=== PATIENT | male | born 1980 | race Hispanic/Latino ===

== ENCOUNTER 2021-06-15 17:12 | Inpatient (IN) | payer MEDICAID ==
[~2021-06-15 17:12] MED LIST: hydrALAZINE 20 MG/1 ML INJ IV ONE
[2021-06-15] MEDS ORDERED: PANTOPRAZOLE 40 MG INJ IV ONE (17:30)
[2021-06-15] MEDS ORDERED: SODIUM CHLORIDE 0.9% 1000 ML 1,000 ML IV ONE (17:30)
[2021-06-15] MEDS ORDERED: ONDANSETRON 4 MG/2 ML INJ IV ONE (17:30)
[2021-06-15] MEDS ORDERED: fentaNYL 250 MCG/5 ML INJ IV ONE (17:31)
--- NOTE | 2021-06-15 17:34 | Emergency Department Report ---
ED Abdominal Pain HPI - General Chief Complaint: Abdominal Pain Stated Complaint: ABDOMINAL PAIN Time Seen by Provider: 06/15/21 17:30 Source: patient, EMS Mode of arrival: Stretcher Limitations: No Limitations - History of Present Illness Initial Comments: Patient is 40 years old male with history of pancreatitis and pancreatic pseudocyst. Patient brought to the emergency room via EMS from home for evaluation of epigastric abdominal pain that radiated to his back. Patient describes his pain as sharp. Patient stated that pain started 3 days ago. Pain associated with nausea and vomiting. Patient denied any fever or chills. No chest pain or shortness of breath. MD Complaint: abdominal pain -: days(s) (3) Location: epigastric Migration to: no migration Severity: moderate Severity scale (0 -10): 7 Quality: sharp Associated Symptoms: nausea, vomiting - Related Data Allergies Allergy/AdvReac Type Severity Reaction Status Date / Time morphine AdvReac Unknown Verified 06/15/21 17:18 ED Review of Systems ROS: Stated complaint: ABDOMINAL PAIN Other details as noted in HPI Comment: All other systems reviewed and negative Constitutional: denies: chills, fever Respiratory: denies: cough, shortness of breath, SOB with exertion Cardiovascular: denies: chest pain, palpitations Gastrointestinal: abdominal pain, nausea, vomiting. denies: diarrhea, constipation, hematemesis, melena, hematochezia Musculoskeletal: denies: back pain Neurological: denies: headache, weakness, numbness, paresthesias, confusion, abnormal gait ED Physical Exam - General Limitations: No Limitations General appearance: alert, in no apparent distress - Head Head exam: Present: atraumatic, normocephalic, normal inspection - Eye Eye exam: Present: normal appearance, PERRL - ENT ENT exam: Present: normal exam, normal orophraynx, mucous membranes dry - Neck Neck exam: Present: normal inspection, full ROM. Absent: tenderness, meningismus - Respiratory Respiratory exam: Present: normal lung sounds bilaterally - Cardiovascular Cardiovascular Exam: Present: regular rate, normal rhythm, normal heart sounds - GI/Abdominal GI/Abdominal exam: Present: soft, normal bowel sounds. Absent: distended, tenderness, guarding, rebound, rigid, organomegaly, mass, bruit, pulsatile mass, hernia - Extremities Exam Extremities exam: Present: normal inspection, full ROM, normal capillary refill. Absent: tenderness - Back Exam Back exam: Present: normal inspection, full ROM. Absent: CVA tenderness (R), CVA tenderness (L) - Neurological Exam Neurological exam: Present: alert, oriented X3, CN II-XII intact, normal gait, reflexes normal. Absent: motor sensory deficit - Psychiatric Psychiatric exam: Present: normal mood - Skin Skin exam: Present: warm, intact, normal color ED Course Vital Signs 06/15/21 06/15/21 06/15/21 17:16 19:13 19:16 Temperature 98 F 98.5 F 98.5 F Pulse Rate 90 74 74 Respiratory 18 12 16 Rate Blood Pressure 178/111 Blood Pressure 170/110 178/111 [Left] O2 Sat by Pulse 96 100 100 Oximetry 06/15/21 06/15/21 19:41 20:07 Temperature 98.6 F 98.5 F Pulse Rate 71 74 Respiratory 20 18 Rate Blood Pressure Blood Pressure 168/102 196/133 [Left] O2 Sat by Pulse 100 100 Oximetry ED Medical Decision Making - Lab Data Result diagrams: 06/15/21 17:35 06/15/21 17:35 - Radiology Data Radiology results: report reviewed - Medical Decision Making Patient is 40 years old male with history of pancreatitis and pancreatic pseudocyst. Patient brought to the emergency room via EMS from home for evaluation of epigastric abdominal pain that radiated to his back. Patient describes his pain as sharp. Patient stated that pain started 3 days ago. Pain associated with nausea and vomiting. Patient denied any fever or chills. No chest pain or shortness of breath. Patient received fentanyl 50 MCG x2 and normal saline. Patient labs reviewed and showed leukocytosis of 13,000. Lipase is 120. CT abdomen and pelvis showed pancreatic dilatation and pancreatic head mass. Patient stated that he had this finding before and they want to do surgery on him but he refused and he does not want surgery. Patient also found to have elevated blood pressure not improved with pain medication. Patient received hydralazine 20 mg IV. I discussed the patient with Dr. George, he agreed to admit the patient to medical service for further management. Critical care attestation.: If time is entered above; I have spent that time in minutes in the direct care of this critically ill patient, excluding procedure time. ED Disposition Clinical Impression: Acute abdominal pain, Acute pancreatitis, Malignant hypertension Disposition: ADMITTED INPATIENT Is pt being admited?: Yes Condition: Stable Instructions: Hypertension (ED)
[2021-06-15 17:50] LABS: Basophils # (Auto) 0.1 K/mm3 (0.0-0.1); Basophils % (Auto) 0.4 % (0.0-1.8); Eosinophils # (Auto) 0.1 K/mm3 (0.0-0.4); Eosinophils % (Auto) 0.4 % (0.0-4.3); Hematocrit 46.7 % (35.5-45.6); Hemoglobin 15.4 gm/dl (11.8-15.2); Lymphocytes # (Auto) 1.5 K/mm3 (1.2-5.4); Lymphocytes % (Auto) 10.8 % (13.4-35.0); Mean Corpuscular HGB Conc 33 % (32-34); Mean Corpuscular Volume 88 fl (84-94); Monocytes # (Auto) 0.8 K/mm3 (0.0-0.8); Monocytes % (Auto) 5.5 % (0.0-7.3); Platelet Count 220 K/mm3 (140-440); Red Blood Count 5.34 M/mm3 (3.65-5.03); Red Cell Distribution Width 14.2 % (13.2-15.2)
[2021-06-15] MEDS ORDERED: fentaNYL 100 MCG/2 ML INJ IV ONE (17:59)
[2021-06-15] MEDS ORDERED: diphenhydrAMINE 50 MG/ML VIAL ONE ×3 (18:07→19:49)
[2021-06-15 18:12] LABS: Alanine Aminotransferase 16 units/L (7-56); Albumin 4.7 g/dL (3.9-5); BUN/Creatinine Ratio 18; Blood Urea Nitrogen 16 mg/dL (9-20); Calcium 8.9 mg/dL (8.4-10.2); Hemolysis Index 20
[2021-06-15 18:15] LABS: Bilirubin,Direct < 0.2 mg/dL (0-0.2)
[2021-06-15 18:44] LABS: Amorphous Crystals,Urine Few; Bilirubin,Urine NEG (Negative); Blood,Urine NEG (Negative); Color,Urine Yellow (Yellow); Mucus,Urine FEW /HPF; Protein,Urine <15 mg/dL mg/dL (Negative); Urobilinogen,Urine < 2.0 mg/dL (<2.0)
--- NOTE | 2021-06-15 19:57 | Cat Scan Report ---
. CT ABDOMEN AND PELVIS WITH CONTRAST HISTORY: abdominal pain. COMPARISON: None. TECHNIQUE: CT images of the abdomen and pelvis were obtained following administration of intravenous contrast. All CT scans at this location are performed using CT dose reduction for ALARA by means of automated exposure control. CONTRAST: 100 ml of intravenous contrast administered. FINDINGS: Lungs/bones: Lung bases are clear. There are mild degenerative changes in the spine with no acute os seous abnormality. Bilateral L4 pars defects present with grade 1 anterolisthesis of L4 on L5. Abdomen/pelvis: There is punctate cholelithiasis with no significant inflammatory change identified. The liver, spleen, adrenals, kidneys, and proximal GI tract appear unremarkable. There is irregular dilatation of the pancreatic duct in the tail and body with rounded fullness in th e pancreatic head region measuring at least 3 cm. This is the approximate area where the duct dilatat ion ceases. There is also mild body and tail atrophy. No gross pathologic regional adenopathy identif ied. Urinary bladder and prostate appear unremarkable. No pelvic free fluid or acute colonic abnormality. IMPRESSION: 1. Abnormal appearance of the pancreas as outlined above. Findings are worrisome for an underlying pa ncreatic head mass with associated ductal dilatation and pancreatic body/tail atrophy. No biliary polo mendy dilatation. 1. Punctate cholelithiasis. Signer Name: Santos Raines MD Signed: 06/15/2021 7:53 PM Workstation Name: [id number]
[2021-06-15] MEDS ORDERED: hydrALAZINE 20 MG/1 ML INJ IV ONE (20:08)
--- NOTE | 2021-06-15 21:11 | History and Physical Report ---
History of Present Illness Date of examination: 06/15/21 Date of admission: 06/15/2021 Chief complaint: Severe epigastric pain for 3 days History of present illness: 40-year-old male with history of recurrent pancreatitis and pancreatic pseudocyst comes in for severe epigastric pain radiating to the back for 3 days. Pain is intermittent in nature. Sharp in nature. Pain is about 8 on a scale of 1-10. No fever or chills. Patient had a surgical procedure where pseudocyst was evacuated in the past. Patient has stopped alcohol since 3 years ago when he had the surgery. Patient still continues to smoke. Food is an exacerbating factor no food is a relieving factor. No fever or chills. No vomiting. Nausea present. Unable to take any food. Review of Systems ROS: Constitutional no weight loss or weight gain no fever or chills HEENT no sore throat no post nasal drip no diplopia Neck no neck stiffness no lymph gland enlargement Chest and lungs no shortness of breath cough or wheezing CVS no chest pain no diaphoresis no palpitations GI severe epigastric pain and nausea. Pain is about 8 on a scale of 1-10. 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 no syncope no seizures Skin no rash no itching Psychiatric no depression no homicidal or suicidal tendencies Hematologic no lymphedema or bruising Endocrine no polydipsia no polyuria no cold intolerance no heat intolerance Past History Past Medical History: hypertension, other (Recurrent pancreatitis) Past Surgical History: Other (Pseudocyst removal) Social history: lives with family, smoking (Smokes about a pack a day.), alcohol abuse (Alcohol dependence in the past still 3 years ago.), full code Family history: hypertension Medications and Allergies Allergies Allergy/AdvReac Type Severity Reaction Status Date / Time morphine AdvReac Unknown Verified 06/15/21 17:18 Exam - Constitutional Vitals: Temp Pulse Resp BP Pulse Ox 98.5 F 74 19 197/133 100 06/15/21 20:07 06/15/21 20:17 06/15/21 20:15 06/15/21 20:17 06/15/21 20:15 General appearance: Present: no acute distress, well-nourished - EENT Eyes: Present: PERRL ENT: hearing intact, clear oral mucosa - Neck Neck: Present: supple, normal ROM - Respiratory Respiratory effort: normal Respiratory: bilateral: CTA - Cardiovascular Heart rate: 78 Rhythm: regular Heart Sounds: Present: S1 & S2. Absent: rub, click - Extremities Extremities: pulses symmetrical, No edema Peripheral Pulses: within normal limits - Abdominal General gastrointestinal: Present: soft, non-tender, non-distended, normal bowel sounds Localized gastrointestinal: tender: diffuse, epigastric periumbilical, guarding: diffuse, epigastric periumbilical, rebound: diffuse, epigastric periumbilical Male genitourinary: Present: normal - Rectal Rectal Exam: deferred - Integumentary Integumentary: Present: clear, warm, dry - Musculoskeletal Musculoskeletal: gait normal, strength equal bilaterally - Psychiatric Psychiatric: appropriate mood/affect, intact judgment & insight - Neurologic Neurologic: CNII-XII intact, moves all extremities - Allied Health Allied health notes reviewed: nursing, case management HEART Score - HEART Score Risk factors: 1-2 risk factors Troponin: < normal limit - Critical Actions Critical Actions: 0-3 pts:0.9-1.7%risk of adverse cardiac event.Candidate for di scharrodney Results - Labs CBC & Chem 7: 06/15/21 17:35 06/15/21 17:35 Labs: Laboratory Last Values WBC 13.8 K/mm3 (4.5-11.0) H 06/15/21 17:35 RBC 5.34 M/mm3 (3.65-5.03) H 06/15/21 17:35 Hgb 15.4 gm/dl (11.8-15.2) H 06/15/21 17:35 Hct 46.7 % (35.5-45.6) H 06/15/21 17:35 MCV 88 fl (84-94) 06/15/21 17:35 MCH 29 pg (28-32) 06/15/21 17:35 MCHC 33 % (32-34) 06/15/21 17:35 RDW 14.2 % (13.2-15.2) 06/15/21 17:35 Plt Count 220 K/mm3 (140-440) 06/15/21 17:35 Lymph % (Auto) 10.8 % (13.4-35.0) L 06/15/21 17:35 [place] % (Auto) 5.5 % (0.0-7.3) 06/15/21 17:35 Eos % (Auto) 0.4 % (0.0-4.3) 06/15/21 17:35 Baso % (Auto) 0.4 % (0.0-1.8) 06/15/21 17:35 Lymph # (Auto) 1.5 K/mm3 (1.2-5.4) 06/15/21 17:35 [place] # (Auto) 0.8 K/mm3 (0.0-0.8) 06/15/21 17:35 Eos # (Auto) 0.1 K/mm3 (0.0-0.4) 06/15/21 17:35 Baso # (Auto) 0.1 K/mm3 (0.0-0.1) 06/15/21 17:35 Seg Neutrophils % 82.9 % (40.0-70.0) H 06/15/21 17:35 Seg Neutrophils # 11.5 K/mm3 (1.8-7.7) H 06/15/21 17:35 Sodium 138 mmol/L (137-145) 06/15/21 17:35 Potassium 4.8 mmol/L (3.6-5.0) 06/15/21 17:35 Chloride 99.5 mmol/L (98-107) 06/15/21 17:35 Carbon Dioxide 27 mmol/L (22-30) 06/15/21 17:35 Anion Gap 16 mmol/L 06/15/21 17:35 BUN 16 mg/dL (9-20) 06/15/21 17:35 Creatinine 0.9 mg/dL (0.8-1.3) 06/15/21 17:35 Estimated GFR > 60 ml/min 06/15/21 17:35 BUN/Creatinine Ratio 18 % 06/15/21 17:35 Glucose 127 mg/dL (75-100) H 06/15/21 17:35 Calcium 8.9 mg/dL (8.4-10.2) 06/15/21 17:35 Total Bilirubin 0.20 mg/dL (0.1-1.2) 06/15/21 17:35 Direct Bilirubin < 0.2 mg/dL (0-0.2) 06/15/21 17:35 Indirect Bilirubin 0.0 mg/dL 06/15/21 17:35 AST 17 units/L (5-40) 06/15/21 17:35 ALT 16 units/L (7-56) 06/15/21 17:35 Alkaline Phosphatase 107 units/L (35-129) 06/15/21 17:35 Total Protein 7.4 g/dL (6.3-8.2) 06/15/21 17:35 Albumin 4.7 g/dL (3.9-5) 06/15/21 17:35 Albumin/Globulin Ratio 1.7 % 06/15/21 17:35 Lipase 120 units/L (13-60) H 06/15/21 17:35 Urine Color Yellow (Yellow) 06/15/21 Unknown Urine Turbidity Hazy (Clear) 06/15/21 Unknown Urine pH 7.0 (5.0-7.0) 06/15/21 Unknown Ur Specific [place] 1.017 (1.003-1.030) 06/15/21 Unknown Urine Protein <15 mg/dl mg/dL (Negative) 06/15/21 Unknown Urine Glucose (UA) Neg mg/dL (Negative) 06/15/21 Unknown Urine Ketones Neg mg/dL (Negative) 06/15/21 Unknown Urine Blood Neg (Negative) 06/15/21 Unknown Urine Nitrite Neg (Negative) 06/15/21 Unknown Urine Bilirubin Neg (Negative) 06/15/21 Unknown Urine Urobilinogen < 2.0 mg/dL (<2.0) 06/15/21 Unknown Ur Leukocyte Esterase Neg (Negative) 06/15/21 Unknown Urine WBC (Auto) 3.0 /HPF (0.0-6.0) 06/15/21 Unknown Urine RBC (Auto) 1.0 /HPF (0.0-6.0) 06/15/21 Unknown Amorphous Crystals Few 06/15/21 Unknown Urine Mucus Few /HPF 06/15/21 Unknown - Imaging and Cardiology Abdominal x-ray: report reviewed Venous US: pending Imaging and Cardiology: CT abdomen/pelvis There is severe dilatation of the pancreatic duct in the tail and body with rounded fullness in the pancreatic head region measuring at least 3 cm. There is a approximate area where the duct dilatation seizures. There is also mild body and tail atrophy. No gross pathologic regional adenopathy identified. Final impression Abnormal appearance of the pancreas as outlined above. Findings are worrisome for an underlying pancreatic head mass with associated ductal dilatation and pancreatic body/tail atrophy. No biliary ductal dilatation. Punctate cholelithiasis. Assessment and Plan Advance Directives: Yes (Full code) VTE prophylaxis?: Chemical Plan of care discussed with patient/family: Yes - Patient Problems (1) Acute pancreatitis Status: Acute Qualifiers: Acute pancreatitis complication: unspecified Plan to address problem: We will keep the patient n.p.o. IV fluids for now Pain management with morphine/Dilaudid. Surgery consult if necessary. (2) Hypertensive emergency Status: Acute Plan to address problem: Patient started on Catapres patch and IV hydralazine Oral antihypertensives once he starts eating. Defer to primary team. (3) Nicotine dependence Status: Chronic Qualifiers: Nicotine product type: cigarettes Plan to address problem: Counseled about stopping smoking NicoDerm patch initiated Chantix to be prescribed at the time of discharge Patient understands the complications of smoking including peripheral arterial disease, coronary artery disease and cerebrovascular accidents 10 minutes (4) DVT prophylaxis Status: Acute Plan to address problem: On anticoagulation GI prophylaxis. (5) Advance care planning Status: Acute Plan to address problem: Disease education conducted, care plan discussed, diagnosis discussed, prognosis discussed. Patient acknowledges understanding and agrees with care plan. +30 minutes.
[2021-06-15] MEDS ORDERED: METOCLOPRAMIDE 10 MG/2 ML INJ IV PRN (21:24)
[2021-06-15] MEDS ORDERED: oxyCODONE /ACETAMINOPHEN 5-325MG TAB PO PRN (21:24)
[2021-06-15] MEDS ORDERED: ACETAMINOPHEN 325 MG TAB PO PRN (21:24)
[2021-06-15] MEDS ORDERED: ONDANSETRON 4 MG/2 ML INJ IV PRN (21:24)
[2021-06-15] MEDS ORDERED: hydrALAZINE 20 MG/1 ML INJ IV PRN (21:27)
[2021-06-15] MEDS ORDERED: fentaNYL 100 MCG/2 ML INJ IV PRN (21:29)
[2021-06-15] MEDS ORDERED: cloNIDine TTS 0.3 MG/24 HR PATCH TD SCH (22:00)
[2021-06-15] MEDS: HEPARIN 5,000 UNIT/1 ML VIAL SUB-Q SCH (22:57)
[2021-06-15] MEDS: FAMOTIDINE 20 MG/2 ML INJ IV SCH (22:57)
[2021-06-16] MEDS: NICOTINE 21 MG/24 HR PATCH TD SCH ×2 (01:55→11:30)
[2021-06-16] MEDS: HYDROmorphone 1 MG/1 ML INJ IV PRN ×5 (02:25→21:30)
[2021-06-16] MEDS: D5W/0.9% NACL 1,000 ML IV SCH ×2 (02:28→11:30)
[2021-06-16 07:12] LABS: Basophils % (Auto) 0.4 % (0.0-1.8); Eosinophils # (Auto) 0.1 K/mm3 (0.0-0.4); Eosinophils % (Auto) 1.1 % (0.0-4.3); Hematocrit 43.2 % (35.5-45.6); Hemoglobin 14.3 gm/dl (11.8-15.2); Lymphocytes # (Auto) 2.2 K/mm3 (1.2-5.4); Lymphocytes % (Auto) 25.6 % (13.4-35.0); Mean Corpuscular HGB Conc 33 % (32-34); Mean Corpuscular Volume 87 fl (84-94); Monocytes # (Auto) 0.6 K/mm3 (0.0-0.8); Monocytes % (Auto) 7.5 % (0.0-7.3); Platelet Count 200 K/mm3 (140-440); Red Blood Count 4.95 M/mm3 (3.65-5.03); Red Cell Distribution Width 14.4 % (13.2-15.2)
[2021-06-16 07:33] LABS: Alanine Aminotransferase 12 units/L (7-56); Albumin 3.9 g/dL (3.9-5); BUN/Creatinine Ratio 14; Blood Urea Nitrogen 11 mg/dL (9-20); Calcium 8.7 mg/dL (8.4-10.2); Hemolysis Index 8
--- NOTE | 2021-06-16 09:03 | Progress Note ---
Assessment and Plan Assessment and plan: History of present illness: 40-year-old male with history of recurrent pancreatitis and pancreatic pseudocyst comes in for severe epigastric pain radiating to the back for 3 days. Pain is intermittent in nature. Sharp in nature. Pain is about 8 on a scale of 1-10. No fever or chills. Patient had a surgical procedure where pseudocyst was evacuated in the past. Patient has stopped alcohol since 3 years ago when he had the surgery. Patient still continues to smoke. Food is an exacerbating factor no food is a relieving factor. No fever or chills. No vomiting. Nausea present. Unable to take any food. Hospital Course: 06/16:Continues to have abdominal pain. Rates at 7/10 and states that it is improved today. Denies having an appetite. Would try diet this evening if patient is able. Patient states he has a history of cyst of on pancreas which was drained. Also was evaluated by surgery at [facility]. I discussed with him that we do not have pancreatic surgical services at our facility so I recommended he follows up with his doctors at [facility] for further evaluation. Anticipate discharge in 24 hrs. Assessment and Plan: #Acute pancreatitis Status: Acute Qualifiers: Acute pancreatitis complication: unspecified Plan to address problem: - Suspect acute worsening of chronic pancreatic issues, has a history of alcoholism in the past ( States he quit 3 yrs ago), history of pancreatic cyst, and pancreatic head mass. - lipase 120 - CTAP: findings suspicious for pancreatic head mass. - Was seen at [facility] due to pancreatic head mass which he is aware of. At the time surgery was recommended but patient declined. patient describes pancreatic cyst which he states was drained by IR at [facility]. He continues to state that he would not like to have surgery due to risky nature of the procedure that was described to him by his surgeons. Advised patient that he should seek his [facility] doctors upon discharge for further evaluation of pancreatic head mass. I stated that we do not have pancreatic surgical services at [facility] and that he would most likely benefit from further work up and eval of mass and potentially curative treatment. - records from [facility] requested - We will keep the patient n.p.o. - IV fluids for now - Pain management with morphine/Dilaudid. - Surgery consult if necessary. #Hypertensive emergency (controlled) Status: Acute Plan to address problem: Patient started on Catapres patch and IV hydralazine Could also be driven by pain on presentation Continue close monitoring. Oral antihypertensives once he starts eating. Defer to primary team. #Nicotine dependence Status: Chronic Qualifiers: Nicotine product type: cigarettes Plan to address problem: Counseled about stopping smoking NicoDerm patch initiated Chantix to be prescribed at the time of discharge Patient understands the complications of smoking including peripheral arterial d isease, coronary artery disease and cerebrovascular accidents 10 minutes #DVT prophylaxis Status: Acute Plan to address problem: On anticoagulation GI prophylaxis. #Advance care planning Status: Acute Plan to address problem: Disease education conducted, care plan discussed, diagnosis discussed, prognosis discussed. Patient acknowledges understanding and agrees with care plan. +30 minutes. History Interval history: Patient continues to have some abdominal pain. Hospitalist Physical - Physical exam Narrative exam: Physical Exam: VITAL SIGNS: Reviewed. GENERAL: The patient appears normally developed, Vital signs as documented. HEAD: No signs of head trauma. EYES: Pupils are equal. Extraocular motions intact. EARS: Hearing grossly intact. MOUTH: Oropharynx is normal. NECK: No adenopathy, no JVD. CHEST: Chest with clear breath sounds bilaterally. No wheezes, rales, or rhonchi. CARDIAC: Regular rate and rhythm. S1 and S2, without murmurs, gallops, or rubs. VASCULAR: No Edema. Peripheral pulses normal and equal in all extremities. ABDOMEN: Soft, non tender and non distended. No rebound or guarding, and no masses palpated. Bowel Sounds normal. MUSCULOSKELETAL: Good range of motion of all major joints. Extremities without clubbing, cyanosis or edema. NEUROLOGIC EXAM: Alert and oriented x 4. no focal sensory or strength deficits. PSYCHIATRIC: Mood normal. SKIN: detail exam as documented in skin assessment - Constitutional Vitals: Temp Pulse Resp BP Pulse Ox 98.3 F 87 16 126/80 94 06/16/21 02:44 06/16/21 02:44 06/16/21 02:44 06/16/21 02:44 06/16/21 02:44 General appearance: Present: no acute distress, well-nourished HEART Score - HEART Score Risk factors: 1-2 risk factors Troponin: < normal limit - Critical Actions Critical Actions: 0-3 pts:0.9-1.7%risk of adverse cardiac event.Candidate for d ischarge Results - Labs CBC & Chem 7: 06/16/21 06:45 06/16/21 06:45 Labs: Laboratory Last Values WBC 8.4 K/mm3 (4.5-11.0) 06/16/21 06:45 RBC 4.95 M/mm3 (3.65-5.03) 06/16/21 06:45 Hgb 14.3 gm/dl (11.8-15.2) 06/16/21 06:45 Hct 43.2 % (35.5-45.6) 06/16/21 06:45 MCV 87 fl (84-94) 06/16/21 06:45 MCH 29 pg (28-32) 06/16/21 06:45 MCHC 33 % (32-34) 06/16/21 06:45 RDW 14.4 % (13.2-15.2) 06/16/21 06:45 Plt Count 200 K/mm3 (140-440) 06/16/21 06:45 Lymph % (Auto) 25.6 % (13.4-35.0) 06/16/21 06:45 [place] % (Auto) 7.5 % (0.0-7.3) H 06/16/21 06:45 Eos % (Auto) 1.1 % (0.0-4.3) 06/16/21 06:45 Baso % (Auto) 0.4 % (0.0-1.8) 06/16/21 06:45 Lymph # (Auto) 2.2 K/mm3 (1.2-5.4) 06/16/21 06:45 [place] # (Auto) 0.6 K/mm3 (0.0-0.8) 06/16/21 06:45 Eos # (Auto) 0.1 K/mm3 (0.0-0.4) 06/16/21 06:45 Baso # (Auto) 0.0 K/mm3 (0.0-0.1) 06/16/21 06:45 Seg Neutrophils % 65.4 % (40.0-70.0) 06/16/21 06:45 Seg Neutrophils # 5.5 K/mm3 (1.8-7.7) 06/16/21 06:45 Sodium 140 mmol/L (137-145) 06/16/21 06:45 Potassium 4.0 mmol/L (3.6-5.0) 06/16/21 06:45 Chloride 104.1 mmol/L (98-107) 06/16/21 06:45 Carbon Dioxide 25 mmol/L (22-30) 06/16/21 06:45 Anion Gap 15 mmol/L 06/16/21 06:45 BUN 11 mg/dL (9-20) 06/16/21 06:45 Creatinine 0.8 mg/dL (0.8-1.3) 06/16/21 06:45 Estimated GFR > 60 ml/min 06/16/21 06:45 BUN/Creatinine Ratio 14 % 06/16/21 06:45 Glucose 133 mg/dL (75-100) H 06/16/21 06:45 Calcium 8.7 mg/dL (8.4-10.2) 06/16/21 06:45 Total Bilirubin 0.30 mg/dL (0.1-1.2) 06/16/21 06:45 Direct Bilirubin < 0.2 mg/dL (0-0.2) 06/15/21 17:35 Indirect Bilirubin 0.0 mg/dL 06/15/21 17:35 AST 13 units/L (5-40) 06/16/21 06:45 ALT 12 units/L (7-56) 06/16/21 06:45 Alkaline Phosphatase 90 units/L (35-129) 06/16/21 06:45 Total Protein 6.4 g/dL (6.3-8.2) 06/16/21 06:45 Albumin 3.9 g/dL (3.9-5) 06/16/21 06:45 Albumin/Globulin Ratio 1.6 % 06/16/21 06:45 Lipase 120 units/L (13-60) H 06/15/21 17:35 Urine Color Yellow (Yellow) 06/15/21 Unknown Urine Turbidity Hazy (Clear) 06/15/21 Unknown Urine pH 7.0 (5.0-7.0) 06/15/21 Unknown Ur Specific [place] 1.017 (1.003-1.030) 06/15/21 Unknown Urine Protein <15 mg/dl mg/dL (Negative) 06/15/21 Unknown Urine Glucose (UA) Neg mg/dL (Negative) 06/15/21 Unknown Urine Ketones Neg mg/dL (Negative) 06/15/21 Unknown Urine Blood Neg (Negative) 06/15/21 Unknown Urine Nitrite Neg (Negative) 06/15/21 Unknown Urine Bilirubin Neg (Negative) 06/15/21 Unknown Urine Urobilinogen < 2.0 mg/dL (<2.0) 06/15/21 Unknown Ur Leukocyte Esterase Neg (Negative) 06/15/21 Unknown Urine WBC (Auto) 3.0 /HPF (0.0-6.0) 06/15/21 Unknown Urine RBC (Auto) 1.0 /HPF (0.0-6.0) 06/15/21 Unknown Amorphous Crystals Few 06/15/21 Unknown Urine Mucus Few /HPF 06/15/21 Unknown [place]/IV: Voiding Method Toilet Active Medications - Current Medications Current Medications: Generic Name Dose Route Start Last Admin Trade Name Freq PRN Reason Stop Dose Admin Acetaminophen 650 mg 06/15/21 21:24 Acetaminophen 325 Mg Tab PO Q4H PRN Pain MILD(1-3)/Fever >100.5/OWUSU Clonidine HCl 0.3 mg 06/15/21 22:00 06/15/21 23:02 Clonidine Tts 0.3 Mg/24 Hr Patch TD 0.3 mg Moore KIMO Administration Famotidine 20 mg 06/15/21 22:00 06/15/21 22:57 Famotidine 20 Mg/2 Ml Inj IV 20 mg BID KIMO Administration Heparin Sodium (Porcine) 5,000 unit 06/15/21 22:00 06/15/21 22:57 Heparin 5,000 Unit/1 Ml Vial SUB-Q 5,000 unit Q12HR KIMO Administration Hydralazine HCl 10 mg 06/15/21 21:27 Hydralazine 20 Mg/1 Ml Inj IV Q3H PRN Blood Pressure Hydromorphone HCl 1 mg 06/16/21 02:14 06/16/21 08:30 Hydromorphone 1 Mg/1 Ml Inj IV 1 mg Q4H PRN Administration Pain , Severe (7-10) Dextrose/Sodium Chloride 1,000 mls @ 125 mls/hr 06/15/21 22:00 06/16/21 02:28 D5ns IV 125 mls/hr DIRECT KIMO Administration Metoclopramide HCl 10 mg 06/15/21 21:24 Metoclopramide 10 Mg/2 Ml Inj IV Q6H PRN Nausea And Vomiting Nicotine 21 mg 06/15/21 22:00 06/16/21 01:55 Nicotine 21 Mg/24 Hr Patch TD 21 mg QDAY KIMO Administration Ondansetron HCl 4 mg 06/15/21 21:24 Ondansetron 4 Mg/2 Ml Inj IV Q3H PRN Nausea And Vomiting Oxycodone/Acetaminophen 1 tab 06/15/21 21:24 06/15/21 22:56 Oxycodone /Acetaminophen 5-325mg Tab PO 1 tab Q6H PRN Administration Pain, Moderate (4-6) Sodium Chloride 10 ml 06/15/21 22:00 06/16/21 08:31 Sodium Chloride 0.9% 10 Ml Flush Syringe IV 10 ml BID KIMO Administration Sodium Chloride 10 ml 06/15/21 21:24 Sodium Chloride 0.9% 10 Ml Flush Syringe IV PRN PRN LINE FLUSH
[2021-06-16] MEDS: HEPARIN 5,000 UNIT/1 ML VIAL SUB-Q SCH ×2 (11:30→21:29)
[2021-06-16] MEDS: FAMOTIDINE 20 MG/2 ML INJ IV SCH ×2 (11:31→21:30)
[2021-06-17] MEDS: HYDROmorphone 1 MG/1 ML INJ IV PRN ×4 (01:30→16:54)
[2021-06-17] MEDS ORDERED: HYDROmorphone 1 MG/1 ML INJ IV ONE (04:59)
[2021-06-17] MEDS ORDERED: hydrALAZINE 20 MG/1 ML INJ IV PRN (05:02)
--- NOTE | 2021-06-17 09:39 | Progress Note ---
Assessment and Plan Assessment and plan: 40-year-old male with history of recurrent pancreatitis and pancreatic pseudocyst comes in for severe epigastric pain radiating to the back for 3 days. Pain is intermittent in nature. Sharp in nature. Pain is about 8 on a scale of 1-10. No fever or chills. Patient had a surgical procedure where pseudocyst was evacuated in the past. Patient has stopped alcohol since 3 years ago when he had the surgery. Acute pancreatitis - Suspect acute worsening of chronic pancreatic issues, has a history of alcoholism in the past (States he quit 3 yrs ago), history of pancreatic cyst, and pancreatic head mass. - CTAP: findings suspicious for pancreatic head mass. - Was seen at [facility] due to pancreatic head mass which he is aware of. At the time surgery was recommended but patient declined. patient describes pancreatic cyst which he states was drained by IR at [facility]. He continues to state that he would not like to have surgery due to risky nature of the procedure that was described to him by his surgeons. Advised patient that he should [facility] upon discharge for further evaluation of pancreatic head mass. I stated that we do not have pancreatic surgical services at [facility] and that he would most likely benefit from further work up and eval of mass and potentially curative treatment. - records from [facility] requested - We will keep the patient n.p.o. - IV fluids for now - Pain management with morphine/Dilaudid. -We will consult GI for further evaluation Hypertensive emergency (controlled) Patient started on Catapres patch and IV hydralazine Could also be driven by pain on presentation Continue close monitoring. Oral antihypertensives once he starts eating. Defer to primary team. Nicotine dependence Counseled about stopping smoking Hospital Course: 06/16:Continues to have abdominal pain. Rates at 7/10 and states that it is improved today. Denies having an appetite. Would try diet this evening if patient is able. Patient states he has a history of cyst of on pancreas which was drained. Also was evaluated by surgery at [facility]. I discussed with him that we do not have pancreatic surgical services at our facility so I recommended he follows up with his doctors at [facility] for further evaluation. Anticipate discharge in 24 hrs. 06/17: Patient continues to have abdominal pain 01/12. We will consult GI for fu rther evaluation. Recheck lipase. History Interval history: No new issues overnight. Hospitalist Physical - Constitutional Vitals: Temp Pulse Resp BP Pulse Ox 97.4 F L 78 18 152/97 98 06/17/21 04:46 06/17/21 04:46 06/17/21 04:46 06/17/21 04:46 06/17/21 04:46 General appearance: Present: no acute distress, well-nourished - EENT Eyes: Present: PERRL, EOM intact ENT: hearing intact, clear oral mucosa, dentition normal - Neck Neck: Present: supple, normal ROM - Respiratory Respiratory effort: normal Respiratory: bilateral: CTA - Cardiovascular Rhythm: regular Heart Sounds: Present: S1 & S2. Absent: gallop, rub - Extremities Extremities: no ischemia, No edema, Full ROM - Abdominal General gastrointestinal: soft, non-tender, non-distended, normal bowel sounds - Integumentary Integumentary: Present: clear, warm, dry - Neurologic Neurologic: CNII-XII intact, moves all extremities HEART Score - HEART Score Risk factors: 1-2 risk factors Troponin: < normal limit - Critical Actions Critical Actions: 0-3 pts:0.9-1.7%risk of adverse cardiac event.Candidate for discharge Results - Labs CBC & Chem 7: 06/16/21 06:45 06/16/21 06:45 Labs: Laboratory Last Values WBC 8.4 K/mm3 (4.5-11.0) 06/16/21 06:45 RBC 4.95 M/mm3 (3.65-5.03) 06/16/21 06:45 Hgb 14.3 gm/dl (11.8-15.2) 06/16/21 06:45 Hct 43.2 % (35.5-45.6) 06/16/21 06:45 MCV 87 fl (84-94) 06/16/21 06:45 MCH 29 pg (28-32) 06/16/21 06:45 MCHC 33 % (32-34) 06/16/21 06:45 RDW 14.4 % (13.2-15.2) 06/16/21 06:45 Plt Count 200 K/mm3 (140-440) 06/16/21 06:45 Lymph % (Auto) 25.6 % (13.4-35.0) 06/16/21 06:45 [place] % (Auto) 7.5 % (0.0-7.3) H 06/16/21 06:45 Eos % (Auto) 1.1 % (0.0-4.3) 06/16/21 06:45 Baso % (Auto) 0.4 % (0.0-1.8) 06/16/21 06:45 Lymph # (Auto) 2.2 K/mm3 (1.2-5.4) 06/16/21 06:45 [place] # (Auto) 0.6 K/mm3 (0.0-0.8) 06/16/21 06:45 Eos # (Auto) 0.1 K/mm3 (0.0-0.4) 06/16/21 06:45 Baso # (Auto) 0.0 K/mm3 (0.0-0.1) 06/16/21 06:45 Seg Neutrophils % 65.4 % (40.0-70.0) 06/16/21 06:45 Seg Neutrophils # 5.5 K/mm3 (1.8-7.7) 06/16/21 06:45 Sodium 140 mmol/L (137-145) 06/16/21 06:45 Potassium 4.0 mmol/L (3.6-5.0) 06/16/21 06:45 Chloride 104.1 mmol/L (98-107) 06/16/21 06:45 Carbon Dioxide 25 mmol/L (22-30) 06/16/21 06:45 Anion Gap 15 mmol/L 06/16/21 06:45 BUN 11 mg/dL (9-20) 06/16/21 06:45 Creatinine 0.8 mg/dL (0.8-1.3) 06/16/21 06:45 Estimated GFR > 60 ml/min 06/16/21 06:45 BUN/Creatinine Ratio 14 % 06/16/21 06:45 Glucose 133 mg/dL (75-100) H 06/16/21 06:45 Calcium 8.7 mg/dL (8.4-10.2) 06/16/21 06:45 Total Bilirubin 0.30 mg/dL (0.1-1.2) 06/16/21 06:45 Direct Bilirubin < 0.2 mg/dL (0-0.2) 06/15/21 17:35 Indirect Bilirubin 0.0 mg/dL 06/15/21 17:35 AST 13 units/L (5-40) 06/16/21 06:45 ALT 12 units/L (7-56) 06/16/21 06:45 Alkaline Phosphatase 90 units/L (35-129) 06/16/21 06:45 Total Protein 6.4 g/dL (6.3-8.2) 06/16/21 06:45 Albumin 3.9 g/dL (3.9-5) 06/16/21 06:45 Albumin/Globulin Ratio 1.6 % 06/16/21 06:45 Lipase 120 units/L (13-60) H 06/15/21 17:35 Urine Color Yellow (Yellow) 06/15/21 Unknown Urine Turbidity Hazy (Clear) 06/15/21 Unknown Urine pH 7.0 (5.0-7.0) 06/15/21 Unknown Ur Specific [place] 1.017 (1.003-1.030) 06/15/21 Unknown Urine Protein <15 mg/dl mg/dL (Negative) 06/15/21 Unknown Urine Glucose (UA) Neg mg/dL (Negative) 06/15/21 Unknown Urine Ketones Neg mg/dL (Negative) 06/15/21 Unknown Urine Blood Neg (Negative) 06/15/21 Unknown Urine Nitrite Neg (Negative) 06/15/21 Unknown Urine Bilirubin Neg (Negative) 06/15/21 Unknown Urine Urobilinogen < 2.0 mg/dL (<2.0) 06/15/21 Unknown Ur Leukocyte Esterase Neg (Negative) 06/15/21 Unknown Urine WBC (Auto) 3.0 /HPF (0.0-6.0) 06/15/21 Unknown Urine RBC (Auto) 1.0 /HPF (0.0-6.0) 06/15/21 Unknown Amorphous Crystals Few 06/15/21 Unknown Urine Mucus Few /HPF 06/15/21 Unknown [place]man/IV: Voiding Method Toilet Active Medications - Current Medications Current Medications: Generic Name Dose Route Start Last Admin Trade Name Freq PRN Reason Stop Dose Admin Acetaminophen 650 mg 06/15/21 21:24 Acetaminophen 325 Mg Tab PO Q4H PRN Pain MILD(1-3)/Fever >100.5/OWUSU Clonidine HCl 0.3 mg 06/15/21 22:00 06/15/21 23:02 Clonidine Tts 0.3 Mg/24 Hr Patch TD 0.3 mg Moore IKMO Administration Famotidine 20 mg 06/15/21 22:00 06/16/21 21:30 Famotidine 20 Mg/2 Ml Inj IV 20 mg BID KIMO Administration Heparin Sodium (Porcine) 5,000 unit 06/15/21 22:00 06/16/21 21:29 Heparin 5,000 Unit/1 Ml Vial SUB-Q 5,000 unit Q12HR KIMO Administration Hydralazine HCl 10 mg 06/17/21 05:02 06/17/21 05:12 Hydralazine 20 Mg/1 Ml Inj IV 10 mg Q4HR PRN Administration Hypertension Hydromorphone HCl 1 mg 06/16/21 02:14 06/17/21 08:19 Hydromorphone 1 Mg/1 Ml Inj IV 1 mg Q4H PRN Administration Pain , Severe (7-10) Dextrose/Sodium Chloride 1,000 mls @ 125 mls/hr 06/15/21 22:00 06/16/21 11:30 D5ns IV 125 mls/hr DIRECT KIMO Administration Metoclopramide HCl 10 mg 06/15/21 21:24 06/17/21 05:23 Metoclopramide 10 Mg/2 Ml Inj IV 10 mg Q6H PRN Administration Nausea And Vomiting Nicotine 21 mg 06/15/21 22:00 06/16/21 11:30 Nicotine 21 Mg/24 Hr Patch TD 21 mg QDAY KIMO Administration Ondansetron HCl 4 mg 06/15/21 21:24 Ondansetron 4 Mg/2 Ml Inj IV Q3H PRN Nausea And Vomiting Oxycodone/Acetaminophen 1 tab 06/15/21 21:24 06/15/21 22:56 Oxycodone /Acetaminophen 5-325mg Tab PO 1 tab Q6H PRN Administration Pain, Moderate (4-6) Sodium Chloride 10 ml 06/15/21 22:00 06/16/21 21:30 Sodium Chloride 0.9% 10 Ml Flush Syringe IV 10 ml BID KIMO Administration Sodium Chloride 10 ml 06/15/21 21:24 Sodium Chloride 0.9% 10 Ml Flush Syringe IV PRN PRN LINE FLUSH
[2021-06-17] MEDS: NICOTINE 21 MG/24 HR PATCH TD SCH (11:06)
[2021-06-17] MEDS: HEPARIN 5,000 UNIT/1 ML VIAL SUB-Q SCH (11:06)
[2021-06-17] MEDS: FAMOTIDINE 20 MG/2 ML INJ IV SCH (11:07)
[2021-06-17 11:57] VITALS: BP 129/91
[2021-06-17] MEDS: D5W/0.9% NACL 1,000 ML IV SCH (14:06)
--- NOTE | 2021-06-17 17:36 | Gastroenterology Consultation ---
History of Present Illness - Reason for Consult Consult date: 06/17/21 abdominal pain Requesting physician: DAKOTA LU - History of Present Illness This is a 40 yo male with pmh of recurrent pancreatitis due to alcohol use, pancreatic pseudocyst admitted on 06/15/2021 for severe epigastric pain x 3-4 days. GI consulted for worsening pain. Patient states he was diagnosed with pancreatitis 3-4 years ago at [facility] and had multiple cysts in the pancreas. Was told to surgery but refused and left AMA. Since then, he was seen at hospital in [place] 7-8 months ago for pancreatitis. Stayed only 1 day. This time, reports having a warning of pancreatitis flare up for past 1 week and had severe pain for the past 3-4 days along with nausea/vomiting. No diarrhea or bleeding. No weight loss. Medication list reviewed. Past History Past Medical History: hypertension, other (Recurrent pancreatitis) Past Surgical History: Other (Pseudocyst removal) Social history: lives with family, smoking (Smokes about a pack a day.), alcohol abuse (Alcohol dependence in the past still 3 years ago.), full code Family history: hypertension Medications and Allergies Allergies Allergy/AdvReac Type Severity Reaction Status Date / Time morphine AdvReac Itching Verified 06/16/21 14:40 Home Medications Medication Instructions Recorded Confirmed Last Taken Type No Known Home Medications [No 06/16/21 06/17/21 Unknown History Reported Home Medications] Active Meds: Active Medications Acetaminophen (Acetaminophen 325 Mg Tab) 650 mg PO Q4H PRN PRN Reason: Pain MILD(1-3)/Fever >100.5/[facility]USU Clonidine HCl (Clonidine Tts 0.3 Mg/24 Hr Patch) 0.3 mg TD [facility] Last Admin: 06/15/21 23:02 Dose: 0.3 mg Famotidine (Famotidine 20 Mg/2 Ml Inj) 20 mg IV BID [facility] Last Admin: 06/17/21 11:07 Dose: 20 mg Heparin Sodium (Porcine) (Heparin 5,000 Unit/1 Ml Vial) 5,000 unit SUB-Q Q12HR [facility] Last Admin: 06/17/21 11:06 Dose: 5,000 unit Hydralazine HCl (Hydralazine 20 Mg/1 Ml Inj) 10 mg IV Q4HR PRN PRN Reason: Hypertension Last Admin: 06/17/21 05:12 Dose: 10 mg Hydromorphone HCl (Hydromorphone 1 Mg/1 Ml Inj) 1 mg IV Q4H PRN PRN Reason: Pain , Severe (7-10) Last Admin: 06/17/21 16:54 Dose: 1 mg Dextrose/Sodium Chloride (D5ns) 1,000 mls @ 125 mls/hr IV DIRECT KIMO Last Admin: 06/17/21 14:06 Dose: 125 mls/hr Metoclopramide HCl (Metoclopramide 10 Mg/2 Ml Inj) 10 mg IV Q6H PRN PRN Reason: Nausea And Vomiting Last Admin: 06/17/21 05:23 Dose: 10 mg Nicotine (Nicotine 21 Mg/24 Hr Patch) 21 mg TD QDAY [facility] Last Admin: 06/17/21 11:06 Dose: 21 mg Ondansetron HCl (Ondansetron 4 Mg/2 Ml Inj) 4 mg IV Q3H PRN PRN Reason: Nausea And Vomiting Oxycodone/Acetaminophen (Oxycodone /Acetaminophen 5-325mg Tab) 1 tab PO Q6H PRN PRN Reason: Pain, Moderate (4-6) Last Admin: 06/15/21 22:56 Dose: 1 tab Sodium Chloride (Sodium Chloride 0.9% 10 Ml Flush Syringe) 10 ml IV BID [facility] Last Admin: 06/17/21 11:07 Dose: 10 ml Sodium Chloride (Sodium Chloride 0.9% 10 Ml Flush Syringe) 10 ml IV PRN PRN PRN Reason: LINE FLUSH Review of Systems - Review of Systems All systems: negative Constitutional: no weight loss, no weight gain, no fever, no chills Eyes: no change in vision Ears, Nose, Throat: no decreased hearing Cardiovascular: chest pain, no edema Gastrointestinal: abdominal pain, nausea, vomiting, no diarrhea, no constipation, no change in bowel habits, no hematemesis, no coffee ground emesis, no melena Neurological: weakness Psychiatric: no anxiety, no memory loss Hematologic/Lymphatic: no easy bruising Allergic/Immunologic: no wheezing Exam - Constitutional Vital Signs: Temp Pulse Resp BP Pulse Ox 97.4 F L 87 18 129/91 98 06/17/21 11:21 06/17/21 11:21 06/17/21 11:21 06/17/21 11:21 06/17/21 11:21 General appearance: mild distress - EENT Eyes: EOM intact ENT: hearing intact - Neck Neck: supple - Respiratory Respiratory effort: normal - Cardiovascular Rhythm: regular Heart Sounds: Present: S1 & S2 - Gastrointestinal General gastrointestinal: Present: soft, tender, non-distended - Integumentary Integumentary: Present: clear, warm - Neurologic Neurological: alert and oriented x3 - Psychiatric Psychiatric: appropriate mood/affect - Labs CBC & Chem 7: 06/16/21 06:45 06/16/21 06:45 - Imaging CT Scan: report reviewed Assessment and Plan # Epigastric pain # H/o recurrent pancreatitis - prior h/o recurrent pancreatitis due to alcohol. Multiple admissions at [facility] in [id number]. Left AMA multiple times. - CT this admission with irregular dilatation of the pancreatic duct in the tail and body with rounded fullness in the pancreatic head region, at least 3 cm where the duct dilatation ceases. Mild body and tail atrophy. No pathology regional adenopathy. - lipase at 120 - normal LFTs - wbc at 13.8 down to 8 yesterday. - no labs done today. - CT findings concerning for chronic pancreatitis and possible pancreatic mass- lesion. Rec - cont with IVF - keep NPO - pain management - patient needs further evaluation to rule out pancreatic mass with EUS either inpatient vs outpatient. - obtain records from [facility]. - will check labs today. - Patient Problems (1) Acute abdominal pain Current Visit: Yes Status: Acute (2) Acute pancreatitis Current Visit: Yes Status: Acute
--- NOTE | 2021-06-18 08:04 | Discharge Summary ---
Providers - Providers Date of Admission: 06/15/21 21:24 Date of discharge: 06/17/21 Attending physician: DAKOTA LU 06/17/21 09:39 Consult to Physician [CONS] Routine Comment: Consulting Provider: JAVIER HOPKINS Physician Instructions: Reason For Exam: pancreatiits, pseudocyst Primary care physician: CHIKA DEJESUS Hospitalization Reason for admission: abd pain Condition: Stable Hospital course: This is a 40 yo male with pmh of recurrent pancreatitis due to alcohol use, pancreatic pseudocyst admitted on 06/15/2021 for severe epigastric pain x 3-4 days. GI consulted for worsening pain. Patient stated he was diagnosed with pancreatitis 3-4 years ago at [facility] and had multiple cysts in the pancreas. The patient was recommended for surgery but refused and left AMA. Since then, he was seen at hospital in [place] 7-8 months ago for pancreatitis. Stayed only 1 day. On this admission, the patient reports having a warning of pancreatitis flare up for past 1 week and had severe pain for the past 3-4 days along with nausea/vomiting. No diarrhea or bleeding. No weight loss. The yina ent was admitted with diagnosis of epigastric pain, recurrent pancreatitis. The patient was seen by GI in consultation. CT scan on this admission revealed irregular dilatation of the pancreatic duct in the tail and body with rounded fullness in the pancreatic head region, at least 3 cm where the duct dilatation ceases. Mild body and tail atrophy. No pathology regional adenopathy. The patient was treated with IV fluid hydration and kept n.p.o. Patient underwent appropriate IV pain management. GI felt that the patient needed further evaluation to rule out pancreatic mass with EUS either inpatient vs outpatient. GI also discussed the case with surgical oncology at [facility] for inpatient transfer for further evaluation for pancreatic mass. The decision was made to transfer the patient. The transfer was discussed with the patient and the patient became very upset and wanted to leave AMA. Nursing reports that the patient left the floor unanounced with the iv in his arm, code walker was called and the pt was found by the security and brought back to the floor. The pt insisted that he has to smoke a cigarette . . He was offered a smoking patch but he refused saying it gives him a headache.The pt signed AMA and left the floor. Dedicated discharge time 32 minutes. Disposition: 07 LEFT AGAINST MEDICAL ADVICE Final Discharge Diagnosis (Prints w/discharge instructions): Pancreatic mass, recurrent pancreatitis, tobacco abuse Core Measure Documentation - Palliative Care Palliative Care/ Comfort Measures: Not Applicable - Core Measures Any of the following diagnoses?: none Exam - Constitutional Vitals: Temp Pulse Resp BP Pulse Ox 97.4 F L 87 18 129/91 98 06/17/21 11:21 06/17/21 11:21 06/17/21 11:21 06/17/21 11:21 06/17/21 11:21 General appearance: Present: no acute distress, well-nourished - EENT Eyes: Present: PERRL ENT: hearing intact, clear oral mucosa - Neck Neck: Present: supple, normal ROM - Respiratory Respiratory effort: normal Respiratory: bilateral: CTA - Cardiovascular Heart Sounds: Present: S1 & S2. Absent: rub, click - Extremities Extremities: pulses symmetrical, No edema Peripheral Pulses: within normal limits - Abdominal General gastrointestinal: Present: soft, non-tender, non-distended, normal bowel sounds Male genitourinary: Present: normal - Integumentary Integumentary: Present: clear, warm, dry - Musculoskeletal Musculoskeletal: gait normal, strength equal bilaterally - Psychiatric Psychiatric: appropriate mood/affect, intact judgment & insight - Neurologic Neurologic: CNII-XII intact, moves all extremities Plan Follow up with: CHIKA DEJESUS MD [Primary Care Provider] - 7 Days
== END 2021-06-17 18:25 | disposition left against medical advice (07) | DRG 439 ==
LOC: ED 17:12 → 3A 21:24
PROVIDERS: ADMIT Internal Medicine; ATTEND Hospitalist
DX: K85.90 Acute pancreatitis without necrosis or infection, unspecified (principal); I16.1 Hypertensive emergency; K86.9 Disease of pancreas, unspecified; I10 Essential (primary) hypertension; F17.210 Nicotine dependence, cigarettes, uncomplicated; Z82.49 Family history of ischemic heart disease and other diseases of the circulatory system
CPT/HCPCS: 36415; 74177; 80048; 80053; 80076; 81001; 83690; 85025; G0378; J3490; Q0162; C9113; J0360; J1170; J1200; J1644; J2405; J2765; J3010; J7030; J7042; Q9967

== ENCOUNTER 2021-06-17 20:26 | Emergency (ER) | payer MEDICAID ==
[2021-06-17 20:50] VITALS: BP 150/107
[2021-06-18] MEDS ORDERED: ONDANSETRON 4 MG/2 ML INJ ONE (01:12)
[2021-06-18] MEDS ORDERED: fentaNYL 100 MCG/2 ML INJ IV ONE (03:07)
== END 2021-06-18 06:26 | disposition home or self-care (01) ==
LOC: ED 20:26
DX: K85.90 Acute pancreatitis without necrosis or infection, unspecified (principal); R10.9 Unspecified abdominal pain; I10 Essential (primary) hypertension
CPT/HCPCS: 96374; 99282; J2405; J3010